=== PATIENT | female | born 1970 | race American Indian/Alaskan Native ===

== ENCOUNTER 2019-10-31 17:41 | Emergency (ER) | payer MEDICAID, OTHER ==
--- NOTE | 2019-10-31 19:24 | EDM.PDOC ---
ED HPI GENERAL MEDICAL PROBLEM - General Chief Complaint: ENT Problem Stated Complaint: TOOTH ACHE Time Seen by Provider: 10/31/19 19:24 Source of Information: Reports: Patient, RN, RN Notes Reviewed History Limitations: Reports: No Limitations - History of Present Illness INITIAL COMMENTS - FREE TEXT/NARRATIVE: patient presents to ER with complaint of left upper molar tooth pain. Patient states the pain began yesterday. Patient states she has had an appointment with dental at [place]. States she waited 3 months for the appointment, and the doctor was sick the day she was to be seen, an appointment was put off another month. Patient states she has been having fever and chills, nausea and vomiting. Patient rates the pain a 10 on 10, is crying in pain. Onset: Gradual Onset Date: 10/30/19 Oral/Mouth Pain Score (Numeric/FACES): 5 - Related Data Allergies Allergy/AdvReac Type Severity Reaction Status Date / Time No Known Allergies Allergy Verified 05/12/19 19:20 Home Meds: Home Meds . [No Known Home Meds] 05/12/19 [History] Past Medical History - Past Health History Medical/Surgical History: Denies Medical/Surgical History - Infectious Disease History Infectious Disease History: Reports: Hepatitis C Social & Family History - Family History Family Medical History: Noncontributory - Tobacco Use Smoking Status *Q: Never Smoker - Caffeine Use Caffeine Use: Reports: None - Recreational Drug Use Recreational Drug Use: No ED ROS GENERAL - Review of Systems Review Of Systems: Comprehensive ROS is negative, except as noted in HPI. ED EXAM, GENERAL - Physical Exam Exam: See Below Exam Limited By: No Limitations General Appearance: Alert, WD/WN, Moderate Distress Eye Exam: Bilateral Eye: EOMI, Normal Inspection Ears: Normal External Exam, Hearing Grossly Normal Nose: Normal Inspection Throat/Mouth: Other (Several teeth missing, left upper first molar black with erythema and edema around it\) Head: Atraumatic, Normocephalic Neck: Normal Inspection, Supple, Non-Tender, Full Range of Motion Respiratory/Chest: No Respiratory Distress, Lungs Clear, Normal Breath Sounds, No Accessory Muscle Use, Chest Non-Tender Cardiovascular: Normal Peripheral Pulses, Regular Rate, Rhythm, No Edema, No Gallop, No JVD, No Murmur, No Rub Peripheral Pulses: 2+: Radial (L), Radial (R) GI/Abdominal: Normal Bowel Sounds, Soft, Non-Tender (Female) Exam: Deferred Rectal (Female) Exam: Deferred Back Exam: Normal Inspection, Full Range of Motion, NT Extremities: Normal Inspection, Normal Range of Motion, Non-Tender, Normal Capillary Refill, No Pedal Edema Neurological: Alert, Oriented, CN II-XII Intact, Normal Cognition, Normal Gait, Normal Reflexes, No Motor/Sensory Deficits Psychiatric: Anxious, Tearful Skin Exam: Warm, Dry, Intact, Normal Color, No Rash Lymphatic: No Adenopathy Course - Vital Signs Last Recorded V/S: Last Vital Signs Temp 97.9 F 10/31/19 18:17 Pulse 80 10/31/19 18:17 Resp 16 10/31/19 18:17 BP 142/62 H 10/31/19 18:17 Pulse Ox 99 10/31/19 18:17 - Orders/Labs/Meds Meds: Medications Discontinued Medications Generic Name Dose Route Start Last Admin Trade Name Rohitq PRN Reason Stop Dose Admin Amoxicillin 500 mg 10/31/19 19:30 Amoxil PO 10/31/19 19:31 ONETIME ONE Ondansetron HCl 4 mg 10/31/19 19:30 Zofran Odt PO 10/31/19 19:31 ONETIME ONE Oxycodone/Acetaminophen 1 tab 10/31/19 19:30 Percocet 325-5 Mg PO 10/31/19 19:31 ONETIME ONE Departure - Departure Time of Disposition: 19:34 Disposition: Home, Self-Care 01 Condition: Fair Clinical Impression: Dental abscess - Discharge Information *PRESCRIPTION DRUG MONITORING PROGRAM REVIEWED*: No *COPY OF PRESCRIPTION DRUG MONITORING REPORT IN PATIENT ANDRESSA: No Instructions: Dental Abscess, [id number] Forms: ED Department Discharge Additional Instructions: Rx: Amoxicillin Continue using Tylenol and/or Ibuprofen as directed for pain/fever Rinse mouth twice daily with mouth wash Follow up with dentist Sepsis Event Note - Evaluation Sepsis Screening Result: No Definite Risk - Focused Exam Vital Signs: Vital Signs Temp Pulse Resp BP Pulse Ox 10/31/19 18:17 97.9 F 80 16 142/62 H 99 Date Exam was Performed: 10/31/19 Time Exam was Performed: 19:31
[2019-10-31] MEDS ORDERED: Ondansetron 4 MG Tab.DIS PO ONE (19:30)
[2019-10-31] MEDS ORDERED: Acetaminophen/oxyCODONE 325-5 MG Tab PO ONE (19:30)
[2019-10-31] MEDS ORDERED: Amoxicillin 500 MG Cap PO ONE (19:30)
== END 2019-10-31 19:46 | disposition home or self-care (01) ==
LOC: DL.ED 17:41
DX: K04.7 Periapical abscess without sinus (principal)
CPT/HCPCS: 99282; A9270